=== PATIENT | male | born 1960 | race Caucasian/White ===

== ENCOUNTER 2025-07-26 04:58 | Emergency (ER) | payer BC | END 2025-07-26 06:20 | disposition home or self-care (01) | LOC: DL.ED 04:58 → MERGE 04:58 → DL.ED 06:20 | DX: R04.0 Epistaxis (principal); E66.9 Obesity, unspecified; Z68.39 Body mass index [BMI] 39.0-39.9, adult; Z88.0 Allergy status to penicillin | CPT/HCPCS: 30905; 99283; A9270; 30901 ==